=== PATIENT | male | born 1980 | race Two or more races ===

== ENCOUNTER 2017-12-17 15:11 | Emergency (ER) | payer MEDICAID, OTHER ==
[~2017-12-17] VITALS: Ht 167.6 cm; Wt 89.8 kg
[2017-12-17 16:50] VITALS: BP 105/63
[2017-12-17] MEDS ORDERED: TETANUS-DIPTH-ACEL PERTUSSIS 0.5ML SYRG IM ONE (17:15)
== END 2017-12-17 17:42 | disposition home or self-care (01) ==
LOC: ER 15:16
DX: S01.83XA Puncture wound without foreign body of other part of head, initial encounter (principal); W21.01XA Struck by football, initial encounter; Y93.61 Activity, american tackle football; Y92.89 Other specified places as the place of occurrence of the external cause; Y99.8 Other external cause status
CPT/HCPCS: 90471; 90715

== ENCOUNTER 2019-02-08 20:18 | Emergency (ER) | payer MEDICAID ==
[~2019-02-08] VITALS: Ht 170.2 cm; Wt 86.2 kg
[2019-02-08 20:19] VITALS: BP 136/82
[2019-02-08] MEDS ORDERED: HYDROcodone-ACET 10/325MG TAB PO ONE (21:00)
[2019-02-08] MEDS ORDERED: IBUPROFEN 800 MG TAB PO ONE (22:00)
== END 2019-02-08 21:55 | disposition home or self-care (01) ==
LOC: ER 20:22
DX: S61.011A Laceration without foreign body of right thumb without damage to nail, initial encounter (principal); W45.8XXA Other foreign body or object entering through skin, initial encounter; Y93.89 Activity, other specified; Y99.8 Other external cause status; Y92.89 Other specified places as the place of occurrence of the external cause
CPT/HCPCS: 12001; 73120